=== PATIENT | male | born 1990 | race Caucasian/White ===

== ENCOUNTER 2022-03-14 03:35 | Emergency (ER) | payer OTHER ==
[2022-03-14] MEDS ORDERED: Lidocaine 1% 5 ML VIAL INJECT ONE (04:06)
[2022-03-14] MEDS ORDERED: Ibuprofen 600 MG Tab PO ONE (04:45)
== END 2022-03-14 05:00 | disposition home or self-care (01) ==
LOC: MW.ED 03:35
DX: S62.664A Nondisplaced fracture of distal phalanx of right ring finger, initial encounter for closed fracture (principal); Z88.1 Allergy status to other antibiotic agents; Z79.899 Other long term (current) drug therapy; W20.8XXA Other cause of strike by thrown, projected or falling object, initial encounter; Y99.0 Civilian activity done for income or pay
CPT/HCPCS: 12001; 73140; 99283; A9270; J3490